=== PATIENT | female | born 1995 | race African-American/Black ===

== ENCOUNTER 2016-07-16 22:46 | Emergency (ER) | payer MEDICAID ==
[~2016-07-16] VITALS: Ht 162.6 cm; Wt 77.6 kg
[2016-07-16 23:10] VITALS: BP 116/77
== END 2016-07-17 06:00 | disposition left against medical advice (07) ==
LOC: ER 23:07
DX: O26.892 Other specified pregnancy related conditions, second trimester (principal); Z3A.26 26 weeks gestation of pregnancy; Z53.21 Procedure and treatment not carried out due to patient leaving prior to being seen by health care provider

== ENCOUNTER 2016-08-24 00:36 | Observation (INO) | payer MEDICAID ==
[~2016-08-24] VITALS: Ht 162.6 cm; Wt 78.0 kg
[2016-08-24] MEDS ORDERED: NIF10C PO (01:01)
[2016-08-24] MEDS ORDERED: PREN-96 OR (01:01)
== END 2016-08-24 02:12 | disposition home or self-care (01) | DRG 566 ==
LOC: LDRP 00:36
PROVIDERS: ADMIT Obstetrics & Gynecology; ATTEND Obstetrics & Gynecology
DX: O62.9 Abnormality of forces of labor, unspecified (principal); E86.0 Dehydration; O99.283 Endocrine, nutritional and metabolic diseases complicating pregnancy, third trimester; Z3A.31 31 weeks gestation of pregnancy
CPT/HCPCS: 59025; 81002; G0378

== ENCOUNTER 2016-09-21 23:43 | Observation (INO) | payer MEDICAID ==
[~2016-09-21] VITALS: Ht 162.6 cm; Wt 74.8 kg
[~2016-09-21 23:43] MED LIST: NIF10C PO; PREN-96 OR
[2016-09-22] MEDS ORDERED: TERBUTALINE SULFATE 1 MG/ML 1ML VIAL SC ONE (00:16)
[2016-09-22] MEDS: TERBUTALINE SULFATE 1 MG/ML 1ML VIAL SC SCH ×3 (00:25→02:00)
[2016-09-22 00:44] LABS: Urine Bilirubin Negative (Negative); Urine Blood Negative /uL (Negative); Urine Color Yellow (Yellow); Urine Glucose 1+ mg/dL (Normal); Urine Ketone Negative (Negative); Urine Mucus FEW (None Seen); Urine Nitrite Negative (Negative); Urine RBC 4 /hpf (0 - 4); Urine Squamous Epithelial Cell FEW /hpf (<5)
== END 2016-09-22 02:40 | disposition home or self-care (01) | DRG 566 ==
LOC: LDRP 23:43
PROVIDERS: ADMIT Specialist; ATTEND Specialist
DX: O62.9 Abnormality of forces of labor, unspecified (principal); O60.00 Preterm labor without delivery, unspecified trimester; Z3A.35 35 weeks gestation of pregnancy
CPT/HCPCS: 59025; 81001; 81002; 96372; G0378; G0434; J3105

== ENCOUNTER 2016-09-28 19:42 | Inpatient (IN) | payer MEDICAID ==
[~2016-09-28] VITALS: Ht 162.6 cm; Wt 63.5 kg
[2016-09-28] MEDS ORDERED: LACTATED RINGER'S 1,000 ML IV ONE (20:14)
[2016-09-28] MEDS ORDERED: PENICILLIN G POT 5MILLION UNIT VIAL ONE (21:05)
[2016-09-28 21:15] LABS: Basophils # (auto) 0 uL; Basophils % (auto) 0.2 % (0.0-2.0); Eosinophils # (auto) 0 uL; Eosinophils % (auto) 0.2 % (0.0-7.0); Hematocrit 33.4 % (36.0-46.0); Hemoglobin 11.1 g/dL (12.2-16.2); Lymphocytes # (auto) 0.9 uL; Mean Corpuscular Hemoglobin 31.7 pg (28.0-32.0); Mean Corpuscular Hgb Conc. 33.3 g/dL (32.0-36.0); Mean Corpuscular Volume 94.9 fL (80.0-100.0); Mean Platelet Volume 8.6 fL (7.4-10.4); Monocytes # (auto) 0.5 uL; Monocytes % (auto) 6.4 % (0.0-12.0); Neutrophils % (auto) 82.2 % (37.0-80.0); Platelet Count (auto) 281 10^3/uL (140-450); Red Cell Distribution Width 14.5 % (11.6-16.0); SUSPECT VIEW TRANSMISSION; White Blood Cell 8.5 10^3/uL (4.4-10.8)
[2016-09-28 21:17] LABS: Urine Bilirubin Negative (Negative); Urine Blood Negative /uL (Negative); Urine Color Yellow (Yellow); Urine Glucose Normal (Normal); Urine Ketone Negative (Negative); Urine Mucus FEW (None Seen); Urine Nitrite Negative (Negative); Urine RBC 4 /hpf (0 - 4); Urine Squamous Epithelial Cell FEW /hpf (<5); Urine Urobilinogen Normal (Negative); Urine pH 6.5 (5.0-8.0)
[2016-09-28 21:37] LABS: INR 0.94 (0.9-1.15); Partial Thromboplastin Time 27.8 sec (22.64-33.71); Prothrombin Time 9.7 sec (9.37-12.3)
[2016-09-28 21:42] LABS: Albumin 2.6 g/dL (3.4-5.0); Potassium 3.5 mmol/L (3.5-5.1)
[2016-09-28 21:45] LABS: Bilirubin, Total 0.7 mg/dL (0.2-1.0); Total Protein 6.8 g/dL (6.4-8.2)
[2016-09-28] MEDS ORDERED: SODIUM CHLORIDE 0.9% 500 ML IV PRN (21:49)
[2016-09-28] MEDS ORDERED: fentaNYL W ROPIVACAINE 150 ML EPI SCH (22:00)
[2016-09-28] MEDS ORDERED: NALOXONE HCL 0.4 MG/ML VIAL IV ONE (22:00)
[2016-09-28] MEDS ORDERED: fentaNYL CITRATE 100 MCG/2 ML VL IV ONE (22:00)
[2016-09-28] MEDS ORDERED: ePHEDrine SULFATE 50 MG/ML AMP IV ONE (22:00)
[2016-09-28] MEDS ORDERED: LIDOCAINE HCL 2 %PF INJ 10ML AMP IJ ONE (22:00)
[2016-09-28] MEDS ORDERED: LIDOCAINE 2%HCL (LOCAL ANESTH.) INJ 20ML MDV IJ ONE ×2 (22:00→22:15)
[2016-09-28] MEDS ORDERED: LACTATED RINGER'S 1,000 ML IV SCH ×2 (22:08)
[2016-09-28] MEDS ORDERED: LACT. RINGERS/OXYTOCIN 20UNITS 1,000 ML IV SCH (22:08)
[2016-09-28] MEDS ORDERED: NALBUPHINE HCL 10 MG/1ml INJECTION ONE (22:13)
[2016-09-28] MEDS ORDERED: PROMETHAZINE HCL 25 MG/ML 1ML ONE (22:13)
[2016-09-28] MEDS ORDERED: NALBUPHINE HCL 10 MG/1ml INJECTION IV PRN (22:15)
[2016-09-28] MEDS ORDERED: METHYLERGONOVINE MALEATE 0.2 MG/ML AMP IM PRN (22:15)
[2016-09-28] MEDS ORDERED: WITCH HAZEL-GLYCERIN PAD TOP PRN (22:15)
[2016-09-28] MEDS ORDERED: PENICILLIN G POT 5MIL/D5 50ML 50 ML IV ONE (22:15)
[2016-09-28] MEDS ORDERED: DERMOPLAST 60ML BOTTLE TOP PRN (22:15)
[2016-09-28] MEDS ORDERED: PHISODERM TOP SOLN 240ML BTL TOP PRN (22:15)
[2016-09-28] MEDS ORDERED: PROMETHAZINE HCL 25 MG/ML 1ML IM PRN (22:15)
[2016-09-29] MEDS ORDERED: PENICILLIN G POTASSIUM 2,500,000 UNITS in D5W 5% 50 ML IV SCH (02:15)
[2016-09-29] MEDS ORDERED: LACT. RINGERS/OXYTOCIN 20UNITS 500 ML IV ONE (03:24)
[2016-09-29 06:40] VITALS: BP 99/58
[2016-09-29 08:00] VITALS: BP 99/58
[2016-09-29 12:00] VITALS: BP 99/54
[2016-09-29] MEDS: IBUPROFEN 600 MG TAB PO PRN (13:45)
[2016-09-29 16:00] VITALS: BP 105/63
[2016-09-29 19:30] VITALS: BP 122/57
[2016-09-30] VITALS: BP 105/67
[2016-09-30] MEDS: IBUPROFEN 600 MG TAB PO PRN (00:44)
[2016-09-30 04:00] VITALS: BP 90/54
[2016-09-30] MEDS ORDERED: INFLUENZA QUAD 2016-2017 0.5 ML SYRG IM ONE (07:15)
[2016-09-30] MEDS ORDERED: TETANUS-DIPTH-ACEL PERTUSSIS 0.5ML SYRG IM ONE (07:15)
[2016-09-30 07:21] VITALS: BP 97/58
[2016-09-30 11:40] VITALS: BP 110/68
== END 2016-09-30 15:45 | disposition home or self-care (01) | DRG 560 ==
LOC: LDRP 19:42 → OBSVTOIN 19:42 → LDRP 23:39
PROVIDERS: ADMIT Obstetrics & Gynecology; ATTEND Obstetrics & Gynecology
PROC: 10E0XZZ Delivery of Products of Conception, External Approach (ICD-10-PCS; principal; 2016-09-29)
PROC: 3E0S3CZ (ICD-10-PCS; 2016-09-29)
PROC: 00HU33Z Insertion of Infusion Device into Spinal Canal, Percutaneous Approach (ICD-10-PCS; 2016-09-29)
PROC: 0HQ9XZZ Repair Perineum Skin, External Approach (ICD-10-PCS; 2016-09-29)
DX: O60.14X0 Preterm labor third trimester with preterm delivery third trimester, not applicable or unspecified (principal); O70.0 First degree perineal laceration during delivery; Z23 Encounter for immunization; O71.89 Other specified obstetric trauma; Z37.0 Single live birth; Z3A.36 36 weeks gestation of pregnancy
CPT/HCPCS: 36415; 51702; 59025; 59409; 62282; 76805; 80053; 81001; 81002; 85025; 85610; 85730; 86592; 86703; 86762; 86850; 86900; 86901; 87081; 87340; 90686; 90715; 94762; 96365; 96366; 96372; 96374; G0434; J2540; J2590; J3010; J7060

== ENCOUNTER 2017-04-11 14:24 | Emergency (ER) | payer MEDICAID ==
[~2017-04-11] VITALS: Ht 162.6 cm; Wt 75.3 kg
[~2017-04-11 14:24] MED LIST changes: -NIF10C PO
[2017-04-11 15:53] LABS: Albumin 3.2 g/dL (3.4-5.0); BUN/Creatinine Ratio 9.1; Bilirubin, Total 0.9 mg/dL (0.2-1.0); Calcium 8.5 mg/dL (8.5-10.1); Potassium 3.8 mmol/L (3.5-5.1); Total Protein 7.7 g/dL (6.4-8.2)
[2017-04-11 16:08] LABS: Basophils # (auto) 0 uL; Basophils % (auto) 0.4 % (0.0-2.0); Eosinophils # (auto) 0 uL; Eosinophils % (auto) 0.5 % (0.0-7.0); Hematocrit 38.8 % (36.0-46.0); Hemoglobin 13.2 g/dL (12.2-16.2); Lymphocytes # (auto) 0.9 uL; Lymphocytes % (auto) 13.6 % (10.0-50.0); Mean Corpuscular Hemoglobin 32.9 pg (28.0-32.0); Mean Platelet Volume 8.3 fL (6.9-10.8); Monocytes # (auto) 0.3 uL; Monocytes % (auto) 5.4 % (0.0-12.0); Neutrophils % (auto) 80.1 % (37.0-80.0); Nucleated Red Blood Cells % 0.1 %; Platelet Count (auto) 238 10^3/uL (140-450); Red Cell Distribution Width 15.5 % (11.8-14.3); White Blood Cell 6.3 10^3/uL (4.4-10.8)
[2017-04-11 17:10] LABS: Urine Bilirubin Negative (Negative); Urine Blood 2+ /uL (Negative); Urine Color Yellow (Yellow); Urine Glucose Normal (Normal); Urine Ketone 2+ (Negative); Urine Mucus FEW (None Seen); Urine Nitrite Negative (Negative); Urine RBC 6 /hpf (0 - 4); Urine Squamous Epithelial Cell FEW /hpf (<5); Urine Urobilinogen Normal (Negative)
[2017-04-11] MEDS ORDERED: SODIUM CHLORIDE 0.9% 1,000 ML IV ONE (22:00)
[2017-04-11 23:59] VITALS: BP 122/77
[2017-04-12] MEDS ORDERED: cefTRIAXone SOD 1,000 MG VL ONE (01:04)
[2017-04-12] MEDS ORDERED: cefTRIAXone W LIDOCAINE 1 GM IM IM ONE (01:15)
[2017-04-12] MEDS ORDERED: ACETAMINOPHEN 500 MG TAB PO ONE (01:15)
== END 2017-04-12 01:10 | disposition home or self-care (01) ==
LOC: ER 14:24
DX: O03.38 Urinary tract infection following incomplete spontaneous abortion (principal); Z3A.16 16 weeks gestation of pregnancy
CPT/HCPCS: 36415; 76805; 80053; 81001; 84702; 85025; 96360; 96372; 99285; J0696; J7030

== ENCOUNTER 2020-01-02 10:24 | Emergency (ER) | payer MEDICAID ==
[~2020-01-02] VITALS: Ht 162.6 cm; Wt 81.6 kg
[2020-01-02 15:43] VITALS: BP 106/62
== END 2020-01-02 15:44 | disposition home or self-care (01) ==
LOC: ER 10:24
DX: T76.21XA Adult sexual abuse, suspected, initial encounter (principal); X58.XXXA Exposure to other specified factors, initial encounter